=== PATIENT | female | born 2000 | race Caucasian/White ===

== ENCOUNTER 2022-08-10 22:00 | Emergency (ER) | payer OTHER ==
[~2022-08-10] VITALS: Ht 167.6 cm; Wt 61.2 kg
[2022-08-10] MEDS ORDERED: GLUCAGON FOR INJ 1 MG VIAL IV STA (22:24)
[2022-08-10] MEDS ORDERED: ONDANSETRON HCL INJ 2MG/ML 2ML 2 MG/ML VIAL IV STA (22:24)
[2022-08-10] MEDS ORDERED: METOCLOPRAMIDE HCL 10 MG/2ML VIAL IV STA (22:27)
[2022-08-10 22:49] LABS: BASOPHILS # (AUTO) 0.1 (0.0-0.1); BASOPHILS % 0.7 % (0.0-1.0); EOSINOPHILS % 0.4 % (0.0-6.0); HEMATOCRIT 41.4 % (34.2-44.1); HEMOGLOBIN 13.2 g/dL (12.0-16.0); LYMPHOCYTES # (AUTO) 2.3 (1.0-3.2); LYMPHOCYTES % 33.5 % (18.0-39.1); MEAN CORPUSCULAR HEMOGLOBIN 28.6 pg (28-32); MEAN CORPUSCULAR HGB CONC 31.9 g/dL (31-35); MEAN CORPUSCULAR VOLUME 89.8 fL (81-99); MONOCYTES # (AUTO) 0.3 (0.2-0.8); NEUTROPHILS # (AUTO) 4.2 (2.1-6.9); NEUTROPHILS % 61.3 % (38.7-80.0); PLATELET COUNT 253 x10e3/uL (140-360); RED BLOOD COUNT 4.61 x10e6/uL (3.6-5.1); RED CELL DISTRIBUTION WIDTH 12.6 % (11.7-14.4)
[2022-08-10 23:00] LABS: INR 0.97; PROTHROMBIN TIME 13.8 seconds (11.9-14.5)
[2022-08-10 23:01] LABS: PARTIAL THROMBOPLASTIN TIME 27.6 seconds (23.8-35.5)
[2022-08-10 23:09] LABS: ALBUMIN 5.1 g/dL (3.5-5.0); ALBUMIN/GLOBULIN RATIO 1.7 (0.8-2.0); ANION GAP 21.3 mmol/L (8-16); CALCIUM 9.9 mg/dL (8.4-10.2); CREATININE, SERUM 0.86 mg/dL (0.57-1.11); POTASSIUM 4.3 mmol/L (3.5-5.1)
[2022-08-10] MEDS ORDERED: AZITHROMYCIN250 MG PO (23:46)
[2022-08-10] MEDS ORDERED: ONDANSETRON ODT4 MG PO (23:46)
[2022-08-10] MEDS ORDERED: VENTOLIN HFA18 GM INH (23:46)
[2022-08-10] MEDS ORDERED: PREDNISONE20 MG PO (23:46)
[2022-08-11 00:41] VITALS: BP 106/73
[2022-08-11] MEDS ORDERED: ONDANSETRON HCL INJ 2MG/ML 2ML 2 MG/ML VIAL IV STA (00:42)
[2022-08-11] MEDS ORDERED: ONDANSETRON HCL INJ 2MG/ML 2ML 2 MG/ML VIAL ONE (00:57)
== END 2022-08-11 00:56 | disposition home or self-care (01) ==
LOC: ER 22:04
DX: T18.128A Food in esophagus causing other injury, initial encounter (principal); U07.1 COVID-19
CPT/HCPCS: 36415; 80053; 84702; 85025; 85610; 85730; 99284; J1610; J2405; J2765

== ENCOUNTER 2022-08-11 15:03 | Emergency (ER) | payer OTHER ==
[~2022-08-11] VITALS: Ht 167.6 cm; Wt 61.2 kg
[~2022-08-11 15:03] MED LIST: AZITHROMYCIN250 MG PO; ONDANSETRON ODT4 MG PO; PREDNISONE20 MG PO; VENTOLIN HFA18 GM INH
[2022-08-11] MEDS ORDERED: SODIUM CHLORIDE 0.9% 1000ML 1,000 ML IV SCH (15:30)
[2022-08-11] MEDS ORDERED: ONDANSETRON HCL INJ 2MG/ML 2ML 2 MG/ML VIAL IV PRN (15:30)
== END 2022-08-11 17:00 | disposition home or self-care (01) ==
LOC: ER 15:14
DX: R11.2 Nausea with vomiting, unspecified (principal)
CPT/HCPCS: 94799; 99282